=== PATIENT | male | born 1985 | race Caucasian/White ===

== ENCOUNTER 2021-05-08 10:12 | Emergency (ER) | payer BC, OTHER ==
[2021-05-08] MEDS ORDERED: Zofran 4 MG/2 ML VIAL IV ONE (10:42)
[2021-05-08] MEDS ORDERED: Sodium Chloride 0.9% 1000 ML 1,000 ML IV STA ×2 (10:42→12:14)
[2021-05-08] MEDS ORDERED: Sodium Chloride 0.9% 1000 ML 1,000 ML ONE ×2 (10:50→12:15)
[2021-05-08] MEDS ORDERED: Zofran 4 MG/2 ML VIAL ONE (10:50)
[2021-05-08 11:15] LABS: Absolute Neutrophil Ct (ANC) 9.56 (1.4-6.9); BASOPHIL % 0.1 % (0.0-0.4); Basophil (Absolute #) 0.01 (0-0.4); Eosinophil % 0.1 % (0.00-5.0); Eosinophil (Absolute #) 0.01 (0-0.5); Hematocrit 44.6 % (42-50); Hemoglobin 15.4 gm/dl (12.5-18.0); Lymphocyte (Absolute #) 0.89 (1.0-4.6); Lymphocytes % 8.3 % (24.0-44.0); Mean Cell Volume 87.3 fl (78-100); Mean Corpuscular Hemoglobin 30.1 pg (26-32); Mean Corpuscular Hgb Concent. 34.5 g/dl (32-36); Mean Platelet Volume 10.2 fl (7.5-11.0); Monocyte (Absolute #) 0.25 (0.0-1.3); Monocytes % 2.3 % (0.0-12.0); Neutrophil % 89.2 % (36.0-66.0); Platelet Count 302 K/mm3 (150-450); Red Blood Count 5.11 M/mm3 (4.1-5.6); White Blood Count 10.7 K/mm3 (4.0-10.5)
--- NOTE | 2021-05-08 11:18 | ERPHSYRPT ---
- History of Present Illness Time Seen by Provider: 05/08/21 11:00 Source: patient, family Exam Limitations: no limitations Patient Subjective Stated Complaint: vomiting since 0800, hx recent heat stroke and heat exhaustion/dehydration Triage Nursing Assessment: pt to ED c/o vomiting and abd pain since 0800 this am. reports hx heat stroke April 12, and heat exhaustion/dehydration April 15. pt is feeling similar sx today but not as severe at this time. pt is twitching while resting in bed on exam. rates 9/10 pain in abd Physician History: This is a 36-year-old white male who works out in the sun and in the heat often. Patient has recently been diagnosed with heatstroke/exhaustion. At the end of March patient underwent a telemedicine consultation and they felt that he had some heatstroke/exhaustion. However, the patient did not seek direct medical attention or given intravenous fluids or have a work-up performed. Patient then went on his family vacation to [place] and was in the sun and heat. A few days later, he had similar symptoms of vomiting and weakness and was evaluated in a [place] emergency department and given intravenous fluids for the same diagnosis. Patient was also dehydrated. Patient began vomiting this morning at 8 AM. He is back home and has been working outside in the heat. This morning, he had been out working in the sun as part of his daily work and started feeling weak and began vomiting. Patient denies chest pain. He denies shortness of breath Timing/Duration: today Severity: moderate Associated Symptoms: nausea, vomiting, loss of appetite, weakness, No shortness of breath, No chest pain Allergies/Adverse Reactions: No Known Drug Allergies Allergy (Unverified 05/08/21 10:47) Home Medications: Lisinopril/Hydrochlorothiazide [Lisinopril-Hctz 20-12.5 mg Tab] 1 each PO DAILY 05/08/21 [History] Sertraline HCl [Zoloft] 100 mg PO DAILY 05/08/21 [History] Hx Tetanus, Diphtheria Vaccination/Date Given: No Hx Influenza Vaccination/Date Given: No Hx Pneumococcal Vaccination/Date Given: No Immunizations Up to Date: No Travel Risk - International Travel Have you traveled outside of the country in past 3 weeks: No - Coronavirus Screening Are you exhibiting any of the following symptoms?: Yes Symptoms: Vomiting/Diarrhea Close contact with a COVID-19 positive Pt in past 14-21 Days: No - Vaccine Status Have you recieved a Covid-19 vaccination: No - Review of Systems Constitutional: Weakness Eyes: No Symptoms Ears, Nose, & Throat: No Symptoms Respiratory: No Symptoms Cardiac: No Symptoms Abdominal/Gastrointestinal: No Symptoms Genitourinary Symptoms: No Symptoms Musculoskeletal: No Symptoms Skin: No Symptoms Psychological: No Symptoms Endocrine: No Symptoms Hematologic/Lymphatic: No Symptoms Immunological/Allergic: No Symptoms All Other Systems: Reviewed and Negative - Past Medical History Pertinent Past Medical History: Yes Cardiac History: Hypertension Psycho-Social History: Anxiety Other Medical History: heat stroke - Past Surgical History Past Surgical History: Yes Musculoskeletal: Orthopedic Surgery Other Surgical History: sinus, R shoulder - Social History Smoking Status: Never smoker Exposure to second hand smoke: No Drug Use: none Patient Lives Alone: No - Nursing Vital Signs Nursing Vital Signs: Initial Vital Signs Temperature 98.3 F 05/08/21 10:37 Pulse Rate 85 05/08/21 10:37 Respiratory Rate 18 05/08/21 10:37 Blood Pressure 125/88 05/08/21 10:37 O2 Sat by Pulse Oximetry 99 05/08/21 10:37 Pain Scale Pain Intensity 9 - Physical Exam General Appearance: mild distress, alert, lethargy (Mild) Eye Exam: PERRL/EOMI, eyes nml inspection Ears, Nose, Throat Exam: normal ENT inspection, moist mucous membranes Neck Exam: normal inspection, non-tender, supple, full range of motion Respiratory Exam: normal breath sounds, lungs clear, airway intact, No chest tenderness, No respiratory distress Cardiovascular Exam: regular rate/rhythm, normal heart sounds, normal peripheral pulses Gastrointestinal/Abdomen Exam: soft, normal bowel sounds, No tenderness Rectal Exam: not done Back Exam: normal inspection, normal range of motion, No CVA tenderness, No v ertebral tenderness Extremity Exam: normal inspection, normal range of motion, pelvis stable Neurologic Exam: alert, oriented x 3, cooperative, elevator builder II-XII nml as tested, normal mood/affect, nml cerebellar function, nml station & gait, sensation nml Skin Exam: normal color, warm, dry Lymphatic Exam: No adenopathy SpO2 Interpretation: normal SpO2: 99 O2 Delivery: Room Air - Course Nursing assessment & vital signs reviewed: Yes Ordered Tests: Active Orders 24 hr Category Date Time Status IV Insertion STAT Care 05/08/21 10:42 Active AMYLASE Stat Lab 05/08/21 10:55 Completed CBC W DIFF Stat Lab 05/08/21 10:55 Completed CMP Stat Lab 05/08/21 10:55 Completed LIPASE Stat Lab 05/08/21 10:55 Completed Lactic Acid Stat Lab 05/08/21 10:42 Completed MAGNESIUM Stat Lab 05/08/21 10:55 Completed UA W/RFX UR CULTURE Stat Lab 05/08/21 11:59 Completed Urine Triage Profile Stat Lab 05/08/21 11:59 Completed Medication Summary Discontinued Medications Generic Name Dose Route Start Last Admin Trade Name Norbertq PRN Reason Stop Dose Admin Sodium Chloride 1,000 mls @ 999 mls/hr 05/08/21 10:42 05/08/21 12:13 Sodium Chloride 0.9% 1000 Ml IV 05/08/21 11:42 Infused .Q1H1M STA Infusion Sodium Chloride Confirm 05/08/21 10:50 Sodium Chloride 0.9% 1000 Ml Administered 05/08/21 10:51 Dose 1,000 mls @ ud .ROUTE .STK-MED ONE Sodium Chloride 1,000 mls @ 999 mls/hr 05/08/21 12:14 05/08/21 13:19 Sodium Chloride 0.9% 1000 Ml IV 05/08/21 13:14 Infused .Q1H1M STA Infusion Sodium Chloride Confirm 05/08/21 12:15 Sodium Chloride 0.9% 1000 Ml Administered 05/08/21 12:16 Dose 1,000 mls @ ud .ROUTE .STK-MED ONE Ondansetron HCl 4 mg 05/08/21 10:42 05/08/21 10:52 Zofran 4 Mg/2 Ml Vial IV 05/08/21 10:43 4 mg STAT ONE Administration Ondansetron HCl Confirm 05/08/21 10:50 Zofran 4 Mg/2 Ml Vial Administered 05/08/21 10:51 Dose 4 mg .ROUTE .STK-MED ONE Lab/Rad Data: Laboratory Result Diagrams 05/08/21 10:55 05/08/21 10:55 Laboratory Results 05/08/21 05/08/21 05/08/21 Range/Units 11:59 11:59 10:55 WBC (4.0-10.5) K/mm3 RBC (4.1-5.6) M/mm3 Hgb (12.5-18.0) gm/dl Hct (42-50) % MCV (78-100) fl MCH (26-32) pg MCHC (32-36) g/dl RDW (11.5-14.0) % Plt Count (150-450) K/mm3 MPV (7.5-11.0) fl Gran % (36.0-66.0) % Eos # (Auto) (0-0.5) Absolute Lymphs (auto) (1.0-4.6) Absolute Monos (auto) (0.0-1.3) Lymphocytes % (24.0-44.0) % Monocytes % (0.0-12.0) % Eosinophils % (0.00-5.0) % Basophils % (0.0-0.4) % Absolute Granulocytes (1.4-6.9) Basophils # (0-0.4) Sodium 134 L (137-145) mmol/L Potassium 4.3 (3.5-5.1) mmol/L Chloride 98 (98-107) mmol/L Carbon Dioxide 22 (22-30) mmol/L Anion Gap 18.8 H (5-15) MEQ/L BUN 24 H (9-20) mg/dL Creatinine 1.17 (0.66-1.25) mg/dL Estimated GFR > 60.0 ML/MIN Glucose 133 H (74-106) mg/dL Lactic Acid (0.4-2.0) Calcium 10.9 H (8.4-10.2) mg/dL Magnesium 1.8 (1.6-2.3) mg/dL Total Bilirubin 0.70 (0.2-1.3) mg/dL AST 32 (17-59) U/L ALT 35 (0-50) U/L Alkaline Phosphatase 82 (38-126) U/L Serum Total Protein 8.5 H (6.3-8.2) g/dL Albumin 5.1 H (3.5-5.0) g/dL Amylase 89 (30-110) U/L Lipase 92 (23-300) U/L Urine Color YELLOW (YELLOW) Urine Appearance SLIGHTLY CLOUDY (CLEAR) Urine pH 6.0 (5-6) Ur Specific [place] 1.020 (1.005-1.025) Urine Protein NEGATIVE (Negative) Urine Ketones TRACE (NEGATIVE) Urine Blood NEGATIVE (0-5) Manjinder/ul Urine Nitrite NEGATIVE (NEGATIVE) Urine Bilirubin NEGATIVE (NEGATIVE) Urine Urobilinogen NEGATIVE (0-1) mg/dL Ur Leukocyte Esterase NEGATIVE (NEGATIVE) Urine WBC (Auto) 0-2 (0-5) /HPF U Hyaline Cast (Auto) 3-5 (0-2) /LPF Urine Bacteria (Auto) RARE (NEGATIVE) /HPF Urine Mucus (Auto) SLIGHT (NEGATIVE) /HPF Urine Culture Reflexed NO (NO) Urine Glucose NEGATIVE (NEGATIVE) mg/dL Urine Opiates Level NEGATIVE (NEGATIVE) Ur Methadone NEGATIVE (NEGATIVE) Urine Barbiturates NEGATIVE (NEGATIVE) Ur Phencyclidine (PCP) NEGATIVE (NEGATIVE) Urine Amphetamine NEGATIVE (NEGATIVE) U Benzodiazepine Level NEGATIVE (NEGATIVE) Urine Cocaine NEGATIVE (NEGATIVE) Urine Marijuana (THC) NEGATIVE (NEGATIVE) 05/08/21 05/08/21 Range/Units 10:55 10:42 WBC 10.7 H (4.0-10.5) K/mm3 RBC 5.11 (4.1-5.6) M/mm3 Hgb 15.4 (12.5-18.0) gm/dl Hct 44.6 (42-50) % MCV 87.3 (78-100) fl MCH 30.1 (26-32) pg MCHC 34.5 (32-36) g/dl RDW 13.0 (11.5-14.0) % Plt Count 302 (150-450) K/mm3 MPV 10.2 (7.5-11.0) fl Gran % 89.2 H (36.0-66.0) % Eos # (Auto) 0.01 (0-0.5) Absolute Lymphs (auto) 0.89 L (1.0-4.6) Absolute Monos (auto) 0.25 (0.0-1.3) Lymphocytes % 8.3 L (24.0-44.0) % Monocytes % 2.3 (0.0-12.0) % Eosinophils % 0.1 (0.00-5.0) % Basophils % 0.1 (0.0-0.4) % Absolute Granulocytes 9.56 H (1.4-6.9) Basophils # 0.01 (0-0.4) Sodium (137-145) mmol/L Potassium (3.5-5.1) mmol/L Chloride (98-107) mmol/L Carbon Dioxide (22-30) mmol/L Anion Gap (5-15) MEQ/L BUN (9-20) mg/dL Creatinine (0.66-1.25) mg/dL Estimated GFR ML/MIN Glucose (74-106) mg/dL Lactic Acid 1.3 (0.4-2.0) Calcium (8.4-10.2) mg/dL Magnesium (1.6-2.3) mg/dL Total Bilirubin (0.2-1.3) mg/dL AST (17-59) U/L ALT (0-50) U/L Alkaline Phosphatase (38-126) U/L Serum Total Protein (6.3-8.2) g/dL Albumin (3.5-5.0) g/dL Amylase (30-110) U/L Lipase (23-300) U/L Urine Color (YELLOW) Urine Appearance (CLEAR) Urine pH (5-6) Ur Specific [place] (1.005-1.025) Urine Protein (Negative) Urine Ketones (NEGATIVE) Urine Blood (0-5) Manjinder/ul Urine Nitrite (NEGATIVE) Urine Bilirubin (NEGATIVE) Urine Urobilinogen (0-1) mg/dL Ur Leukocyte Esterase (NEGATIVE) Urine WBC (Auto) (0-5) /HPF U Hyaline Cast (Auto) (0-2) /LPF Urine Bacteria (Auto) (NEGATIVE) /HPF Urine Mucus (Auto) (NEGATIVE) /HPF Urine Culture Reflexed (NO) Urine Glucose (NEGATIVE) mg/dL Urine Opiates Level (NEGATIVE) Ur Methadone (NEGATIVE) Urine Barbiturates (NEGATIVE) Ur Phencyclidine (PCP) (NEGATIVE) Urine Amphetamine (NEGATIVE) U Benzodiazepine Level (NEGATIVE) Urine Cocaine (NEGATIVE) Urine Marijuana (THC) (NEGATIVE) - Progress Progress: improved, re-examined Counseled pt/family regarding: lab results, diagnosis, need for follow-up - Departure Departure Disposition: Home Clinical Impression: Vomiting, Dehydration Condition: Stable Critical Care Time: No Referrals: RUTH ARGUELLO [Primary Care Provider] - Additional Instructions: Drink plenty of cool liquids. Stay out of the sun completely over the next 48 hours. Follow-up with Dr. Сергей during that 48-hour period of time for further management and instructions. Take your medication as prescribed. Forms: Work/School Release Form Prescriptions: Ondansetron ODT 4 MG [Zofran Odt 4 mg] 4 mg PO Q6H PRN PRN #10 tablet PRN Reason: Vomiting
[2021-05-08 11:26] LABS: ALBUMIN 5.1 g/dL (3.5-5.0); ALKALINE PHOSPHATASE 82 U/L (38-126); AMYLASE 89 U/L (30-110); ANION GAP 18.8 MEQ/L (5-15); BLOOD UREA NITROGEN 24 mg/dL (9-20); CHLORIDE 98 mmol/L (98-107); Calcium 10.9 mg/dL (8.4-10.2); Carbon Dioxide 22 mmol/L (22-30); Creatinine 1 1.17 mg/dL (0.66-1.25); EST GLOMERULAR FILTRATION RATE > 60.0 ML/MIN; Glucose 133 mg/dL (74-106); LIPASE 92 U/L (23-300); MAGNESIUM 1.8 mg/dL (1.6-2.3); Potassium 4.3 mmol/L (3.5-5.1); SGOT/AST 32 U/L (17-59); SGPT/ALT 35 U/L (0-50); SODIUM 134 mmol/L (137-145); Total Protein 8.5 g/dL (6.3-8.2)
[2021-05-08 12:14] LABS: Appearance SLIGHTLY CLOUDY (CLEAR); Bacteria RARE /HPF (NEGATIVE); Bilirubin NEGATIVE (NEGATIVE); Blood NEGATIVE Ery/ul (0-5); Glucose NEGATIVE (NEGATIVE); Ketones TRACE (NEGATIVE); Leukocyte Esterase NEGATIVE (NEGATIVE); Mucus SLIGHT /HPF (NEGATIVE); Nitrite NEGATIVE (NEGATIVE); Protein,Urine Dip NEGATIVE (Negative); Urobilinogen NEGATIVE mg/dL (0-1); WBC 0-2 /HPF (0-5)
[2021-05-08 12:35] LABS: Amphetamine,Urine NEGATIVE (NEGATIVE); Barbiturate,Urine NEGATIVE (NEGATIVE); Benzodiazepine,Urine NEGATIVE (NEGATIVE); Cocaine,Urine NEGATIVE (NEGATIVE); Methadone,Urine NEGATIVE (NEGATIVE); Opiate,Urine NEGATIVE (NEGATIVE); PCP,Urine NEGATIVE (NEGATIVE); THC,Urine NEGATIVE (NEGATIVE)
[2021-05-08 14:08] VITALS: BP 106/70; PULSE 106; O2SAT 100
== END 2021-05-08 14:09 | disposition home or self-care (01) ==
LOC: ED 10:12
DX: R11.10 Vomiting, unspecified (principal); E86.0 Dehydration
CPT/HCPCS: 36000; 36415; 80053; 80307; 81001; 82150; 83605; 83690; 83735; 85025; 96360; 96361; 96374; 99284; J2405

== ENCOUNTER 2024-08-23 05:37 | Day surgery (SDC) | payer OTHER ==
[2024-08-23] MEDS: CEFAZOLIN 2 GM/100 ML NaCl 2 GM/100 ML IVPB IV SCH (06:27)
[2024-08-23] MEDS: celeBREX 100 MG PO ONE (06:27)
[2024-08-23] MEDS: Decadron 4 MG PO ONE (06:27)
[2024-08-23] MEDS: NEURONTIN PO ONE (06:27)
[2024-08-23] MEDS: Lactated Ringers 1,000 ML IV SCH (06:27)
[2024-08-23] MEDS: TYLENOL EXTRA STRENGTH 500 MG PO ONE (06:27)
[2024-08-23 06:36] LABS: Hematocrit 40.4 % (40.1-51.0); Hemoglobin 13.5 g/dL (13.7-17.5); Mean Cell Volume 85.4 fL (79.0-92.2); Mean Corpuscular Hemoglobin 28.5 pg (25.7-32.2); Mean Corpuscular Hgb Concent. 33.4 g/dL (32.3-36.5); Mean Platelet Volume 10.2 fL (9.4-12.4); Platelet Count 175 x10^3/uL (163-337); Red Blood Count 4.73 x10^6/uL (4.63-6.08); Red Cell Distribution Width 12.3 % (11.6-14.4); White Blood Count 5.1 x10^3/uL (4.23-9.07)
[2024-08-23 06:44] VITALS: RESP 18
[2024-08-23 06:48] LABS: ANION GAP 11.4 MEQ/L (5-15); BILIRUBIN,TOTAL 0.2 mg/dL (0.2-1.3); Calcium 9.3 mg/dL (8.4-10.2); Creatinine 1 1.13 mg/dL (0.66-1.25); EST GLOMERULAR FILTRATION RATE 83.7 ML/MIN; Total Protein 6.9 g/dL (6.3-8.2)
[2024-08-23] MEDS ORDERED: SUBLIMAZE 100 MCG/2 ML ONE ×2 (07:22→09:04)
[2024-08-23] MEDS ORDERED: Versed 2 MG/2 ML Injection ONE (07:22)
[2024-08-23] MEDS ORDERED: Marcaine Mpf 0.5% Vial 30 Ml ONE (07:24)
[2024-08-23] MEDS ORDERED: EXPAREL 133 MG/10 ML VIAL IJ ONE (07:24)
[2024-08-23] MEDS ORDERED: Epinephrine Preservative Free 1 MG/ML ONE (08:10)
[2024-08-23] MEDS ORDERED: Zofran 4 MG/2 ML VIAL ONE (08:18)
[2024-08-23] MEDS ORDERED: ROCURONIUM BROMIDE IV ONE (08:18)
[2024-08-23] MEDS ORDERED: DIPRIVAN 200 MG/20 ML IV ONE (08:18)
[2024-08-23] MEDS ORDERED: BRIDION 200MG/2ML IV ONE (08:18)
[2024-08-23] MEDS ORDERED: Xylocaine-Mpf 2% 5 Ml Vial ONE (08:18)
[2024-08-23] MEDS ORDERED: DEXMEDETOMIDINE 80 MCG/20ML-NS IV ONE (08:20)
[2024-08-23] MEDS ORDERED: BREVIBLOC 100 MG/10 ML IV ONE (08:21)
[2024-08-23] MEDS ORDERED: Ephedrine Sulfate 50 MG/ML ONE (08:39)
--- NOTE | 2024-08-23 10:13 | XRAY ---
Indication: Left ankle arthroscopy with synovectomy, lateral ankle stabilization, peroneal tendon debridement/repair, and possible sural nerve decompression. Intraoperative fluoroscopy was provided 59 seconds. Numerous digital spot and cine images demonstrates instrumentation talus and lateral malleolus. Lateral malleolus demonstrates single orthopedic K wire. Correlate with intraoperative findings/report.
[2024-08-23 11:18] VITALS: O2SAT 97
[2024-08-23 11:24] VITALS: BP 153/82; PULSE 82; TEMP 96.5
--- NOTE | 2024-08-23 13:53 | XRAY ---
59 seconds of fluoroscopy was used in surgery for a left ankle arthroscopy with synovectomy, lateral ankle stabilization, peroneal tendon debridement/repair, and possible sural nerve decompression.
--- NOTE | 2024-08-25 11:23 | OP ---
SURGERY DATE/TIME: 08/23/2024 [id number] PREOPERATIVE DIAGNOSES: 1) Left ankle pain. 2) Tear, anterior talofibular ligament and calcaneofibular ligament. 3) Ankle joint effusion. 4) Ankle synovitis. 5) Lateral ankle instability. 6) Peroneal tendinitis, peroneus brevis. 7) Sural nerve entrapment. POSTOPERATIVE DIAGNOSES: 1) Left ankle pain. 2) Tear, anterior talofibular ligament and calcaneofibular ligament. 3) Ankle joint effusion. 4) Ankle synovitis. 5) Lateral ankle instability. 6) Peroneal tendinitis, peroneus brevis. 7) Sural nerve entrapment. PROCEDURE: 1) Ankle arthroscopy with complete synovectomy, left ankle. 2) Lateral ankle stabilization double ligament, calcaneofibular ligament and anterior talofibular ligament, with Brostrom-Wilson modification and internal brace. 3) Peroneal tendon debridement, peroneus brevis, with tenosynovectomy. 4) Sural neurectomy, left. SURGEON: Evans Patrick DPM KNITTED GARMENT FINISHER: Lucien Bingham NP ANESTHESIA: General plus a regional block consisting of a popliteal and saphenous. See anesthesia report of details. ESTIMATED BLOOD LOSS: Approximately 5 mL. MATERIALS: Bob internal brace consisting of one 2.9 Juggernaut to a 2.9 Betalink with two 1.45 Juggernauts, 4-0 Monocryl, 3-0 nylon. HEMOSTASIS: Thigh tourniquet set to 300 mmHg for a total of 70 total tourniquet minutes. INDICATIONS: The patient is a very pleasant 39-year-old male who presented to my clinic approximately 1 month ago for a sprained ankle to the left lower extremity. The patient did have a significant amount of pain and was having a hard time ambulating or tolerating the use of the ankle brace at approximately 4 weeks following the injury. An MRI was taken approximately 1 week after the injury demonstrating a complete tear of the ATFL and CFL. The patient was unable to tolerate the physical therapy proprioception and balance training and functional rehab and at 4 weeks was determined an adequate candidate for reconstruction of the lateral ankle ligament. The patient was made aware of all risks, complications, and benefits of surgical intervention at this time including, but not limited to, infection, hematoma, seroma, possibility of delayed wound healing, non-wound healing, possibility of failure of surgical intervention, possibility of stiff ankle, possible need for further surgical intervention at a later date. No guarantees were provided as to the outcome of surgical intervention. Plenty of time was allowed for the patient to ask questions, which were answered to his apparent satisfaction. It was at this time we decided to proceed. DESCRIPTION OF PROCEDURE AND FINDINGS: The patient was brought into the PACU prior to the procedure and provided a popliteal and saphenous block. Follow this, patient was brought into the operating room and placed on the operating room table in the supine position. General anesthesia was administered until the patient was adequately sedated. A well-padded thigh tourniquet was applied to the patient's left thigh. The tourniquet was set to 300 mmHg. The left lower extremity was prepped and draped in typical sterile fashion and lowered onto the surgical field. At this time, attention was directed to the medial and lateral aspects at the level of the malleoli of the left ankle. A skin marker was utilized to identify the tips of these structures as well as the palpable dell at the anterior aspect of the ankle joint. A skin marker was utilized to draw a line between these structures. An anteromedial portal and an anterolateral portal were drawn in the suspected areas of entry. From that standpoint, an 11-blade was utilized to make an incision at the anteromedial aspect of the left ankle. Insufflation took place utilizing 30 mL of lactated Ringer's, watching the ankle dorsiflex as the fluid was insufflated. A curved mini was then utilized to puncture the capsule at the anteromedial aspect of the ankle joint. Once this was performed, the obturator and trocar were then introduced. The obturator was removed and a bardales of insufflation fluid was seen through the trocar. Once this occurred, a 4.0 mm camera 30-degree angle was then introduced and joint inspection took place. On inspection of the joint, there was a significant amount of crab meat and hemorrhagic synovitis at the medial and lateral gutters as well as the anterior lip of the distal tibia. From that standpoint, a significant amount of the synovitis was resected. Inspection of the AITFL where a low-lying Tully ligament was identified and debrided, as well as a significant amount of synovitis between the syndesmosis was identified. At this time, a significant amount of synovitis at the lateral ankle ligament was then debrided and the ATFL was inspected. Proximal tearing was identified. With visualization of the scope, the ATFL was seemingly improved with no significant signs of tearing. However, when retracted, this pulled and disconnected from its proximal extent. From that standpoint, after debridement, the portal sites were switched and debridement of the medial gutter was performed. Inspection of the remaining joint was performed once again and a blunt probe was used to check the cartilage for any osteochondral defects on the talar and tibial side of which none were found. From that standpoint, the shoulder and the camera were removed. At this time, fluoroscopy was brought in, and anterior drawer and a talar tilt were performed demonstrating significant laxity of the lateral ankle ligament. Decision was made at this time to go ahead and proceed with the double ligament repair. At this time, the Esmarch was utilized to exsanguinate the leg. A curvilinear incision was made at the midline of the fibula extending to approximately the anterior process of the calcaneus. Once this was performed, careful dissection was carried down to the level of the sinus tarsi as well as the ATFL ligament where any neurovascular structures that were identified were either retracted out of the way or cauterized. The superficial peroneal nerve was protected during this portion of the procedure. From that standpoint, once the ATFL was identified, this was resected off of the cuff of the fibula and reflected posteriorly. This was carried down where a significant amount of scar tissue approximately 10 mm thick was debrided from this area. Once this was performed, the lateral wall of the talus was identified. Copious amounts of sterile saline were utilized to flush the surgical site. The ATFL was then lifted from its proximal extent and the internal brace was placed into the body of the talus in approximately a 45-degree angle relative to the joint surface, making sure not to violate the subtalar joint or the tibiotalar joint. Once this was performed, a 2.9 Juggernaut was then introduced, gaining adequate fixation within the bone. From that standpoint, the footprint of the ATFL was secured at the distal aspect of the fibula and the footprint of the ATFL. Once this was performed, two 1.45 Juggernauts were placed just proximal and just distal to the sites, and this was utilized to reapproximate the ATFL. Once the first pass was performed, it was deemed that there was such significant scar tissue on the lateral aspect that the patient would benefit from a Wilson modification to the lateral ankle stabilization, and the inferior extensor retinaculum was utilized to beef up the construct. Once this was performed, stress views were taken deeming significant improvement in the anterior drawer as well as the talar tilt to the ankle joint. From that standpoint, through the same incision the peroneal tendons were inspected as well as the sural nerve. There was a significant amount of tenosynovitis on the peroneus brevis tendon and small amount of disease to the dorsal aspect of the tendon which was debrided; however, this was less than 10% of the actual surface of the tendon itself. The tenosynovitis seemingly entrapped the sural nerve to some extent which was first released from the peroneus brevis, and once the tenosynovitis was freed, careful dissection was made to remove the tenosynovitis from the sural nerve. The surgical site was then cleansed with copious amounts of sterile saline. After this, 4-0 Monocryl was utilized to coapt the subcutaneous skin edges, 3-0 nylon was then utilized in a horizontal mattress-type fashion to coapt the lateral incision and then simple interrupted were utilized to coapt the incisions at the portal sites. Following this, a dressing consisting of Betadine, Adaptic, 4 x 4, Kerlix, ABD, and Ben was applied to the patient's left lower extremity with the foot orthogonal relative to the longitudinal axis of the leg. The patient was then reversed from anesthesia and returned to the postoperative anesthesia care unit with vital signs stable and vascular status intact. The patient handled the anesthesia as well as the procedure without significant complication. Postoperative orders as indicated in the patient's discharge chart.
== END 2024-08-23 11:30 | disposition home or self-care (01) ==
LOC: SDC 05:37
PROVIDERS: ATTEND Podiatrist Foot & Ankle Surgery
DX: S93.412A Sprain of calcaneofibular ligament of left ankle, initial encounter (principal); S93.432A Sprain of tibiofibular ligament of left ankle, initial encounter; M25.572 Pain in left ankle and joints of left foot; M25.472 Effusion, left ankle; M25.372 Other instability, left ankle; M76.72 Peroneal tendinitis, left leg; G58.8 Other specified mononeuropathies
CPT/HCPCS: 27658; 27696; 29898; 36415; 64704; 73610; 76000; 76937; 80053; 85027; C1713; J0171; J0690; J2250; J2405; J2704; J3010; A9270-GY

== ENCOUNTER 2025-04-09 13:27 | Emergency (ER) | payer BC ==
[2025-04-09 13:50] LABS: BASOPHIL % 0.4 % (0.2-1.2); Basophil (Absolute #) 0.03 x10^3/uL (0.01-0.08); Eosinophil (Absolute #) 0.16 x10^3/uL (0.04-0.54); Hematocrit 43.0 % (40.1-51.0); Hemoglobin 14.3 g/dL (13.7-17.5); IMMATURE GRAN # 0.01 x10^3u/L (0.001-0.031); IMMATURE GRAN % 0.1 % (0.001-0.429); Lymphocyte (Absolute #) 2.59 x10^3/uL (1.32-3.57); Mean Corpuscular Hemoglobin 28.4 pg (25.7-32.2); Mean Corpuscular Hgb Concent. 33.3 g/dL (32.3-36.5); Monocyte (Absolute #) 0.38 x10^3/uL (0.30-0.82); NUCLEATED RBC # 0.00 x10^3u/L (0.00-0.012); NUCLEATED RBC % 0.0 % (0.00-0.2); Platelet Count 223 x10^3/uL (163-337); Red Blood Count 5.03 x10^6/uL (4.63-6.08); White Blood Count 6.7 x10^3/uL (4.23-9.07)
--- NOTE | 2025-04-09 14:01 | XRAY ---
CLINICAL HISTORY: lethargy COMPARISON: None available. TECHNIQUE: Axial non-contrast CT scan of the brain was performed from the skull base to the high parietal region. One of the following dose reduction techniques were utilized for this exam: Automated exposure control, adjustment of the mA and/or kV according to patient size, use of iterative reconstruction. FINDINGS: Brain Parenchyma: Subtle periventricular hyodensities are noted... microvascular ischaemic angiopathy Normal attenuation of the cerebral hemispheres, cerebellum, and brainstem. No evidence of acute infarct, hemorrhage, or mass effect. No abnormal areas of hypo- or hyperattenuation. Ventricular System: Ventricles are normal in size and configuration. No evidence of hydrocephalus or ventricular enlargement. Subarachnoid Spaces: Normal sulci and cisterns. No evidence of subarachnoid hemorrhage or extra-axial fluid collections. Cerebellum and Brainstem: No masses, lesions, or areas of abnormal density. Orbits: Normal appearance of the globes, optic nerves, and extraocular muscles. No evidence of orbital masses or abnormal density. Sinuses: Mild DNS Bilateral petrous apices pneumatization Left maxillary and bilateral maxillary sinusitis Mastoid Air Cells: Clear mastoid air cells. No evidence of mastoiditis. Skull: Normal skull morphology. IMPRESSION: 1. No acute ischaemic insult is noted. 2. Rest is described above. Electronically Signed by: Klaus Acevedo MD. (04/09/2025 13:58:19 EDT)
[2025-04-09 14:03] VITALS: TEMP 97.2
[2025-04-09 14:03] LABS: Calcium 9.3 mg/dL (8.4-10.2); Carbon Dioxide 24.0 mmol/L (22-30); Creatinine 1 1.44 mg/dL (0.66-1.25); EST GLOMERULAR FILTRATION RATE 62.2 ML/MIN; Glucose 129.0 mg/dL (74-106); Potassium 4.3 mmol/L (3.5-5.1); SGOT/AST 32.0 U/L (17-59); SGPT/ALT 27.0 U/L (0-50); Total Protein 7.6 g/dL (6.3-8.2)
[2025-04-09 14:06] VITALS: O2SAT 95
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
[2025-04-09] MEDS ORDERED: Lactated Ringers 1,000 ML IV ONE (14:34)
[2025-04-09] MEDS: Lactated Ringers 1,000 ML IV SCH (14:35)
[2025-04-09 15:14] VITALS: BP 98/58; PULSE 76; RESP 18
[2025-04-09 15:25] LABS: INFLUENZA A NEGATIVE (NEGATIVE); INFLUENZA B NEGATIVE (NEGATIVE); RESPIRATORY SYNCTIAL VIRUS NEGATIVE (NEGATIVE); SARS-CoV-2 Xpert Express NEGATIVE (NEGATIVE)
== END 2025-04-09 16:00 | disposition home or self-care (01) ==
LOC: ED 13:27
DX: R55 Syncope and collapse (principal); T67.3XXA Heat exhaustion, anhydrotic, initial encounter; R25.2 Cramp and spasm; I10 Essential (primary) hypertension; R20.2 Paresthesia of skin; Z79.899 Other long term (current) drug therapy

== ENCOUNTER 2025-06-07 14:09 | Day surgery (SDC) | payer OTHER ==
[2025-06-07] MEDS ORDERED: LIDOCAINE HCL 2% 100 MG/5 ML IJ ONE (14:10)
[2025-06-07] MEDS ORDERED: methylPREDNISolone acetate IM ONE (14:10)
[2025-06-07] MEDS ORDERED: propofoL IV ONE (16:35)
[2025-06-07] MEDS ORDERED: Lactated Ringers 1,000 ML IV ONE (17:55)
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
== END 2025-06-07 17:07 | disposition home or self-care (01) ==
LOC: SDC-PAIN 14:09
PROVIDERS: ATTEND Psychiatry & Neurology Pain Medicine
DX: M47.817 Spondylosis without myelopathy or radiculopathy, lumbosacral region (principal)

== ENCOUNTER 2025-07-12 12:56 | Day surgery (SDC) | payer OTHER ==
[2025-07-12] MEDS ORDERED: methylPREDNISolone acetate IM ONE (12:57)
[2025-07-12] MEDS ORDERED: BUPIVACAINE 0.5% VIAL IJ ONE (12:57)
[2025-07-12] MEDS ORDERED: Lactated Ringers 1,000 ML IV ONE (15:55)
[2025-07-12] MEDS ORDERED: Xylocaine-Mpf 2% 5 Ml Vial ONE (16:05)
[2025-07-12] MEDS ORDERED: propofoL IV ONE (16:05)
== END 2025-07-12 16:35 | disposition home or self-care (01) ==
LOC: SDC-PAIN 12:56
PROVIDERS: ATTEND Psychiatry & Neurology Pain Medicine
DX: M47.817 Spondylosis without myelopathy or radiculopathy, lumbosacral region (principal)